=== PATIENT | male | born 1975 | race Caucasian/White ===

== ENCOUNTER 2017-01-11 19:38 | Emergency (ER) | payer OTHER ==
[~2017-01-11] VITALS: Ht 167.6 cm; Wt 77.1 kg
[~2017-01-11 19:38] MED LIST: ALBUTEROL17 G2 IH; ALBUTEROL17 GM INH; AMOXICILLIN500 M1 PO; BACTROBAN22 GM NS; BACTROBAN22 GM TP; CIPRO PO; COSOPT1 UNI1 OD; CYANOCOBALAMIN; DICLOFENAC PO; DOXYCYCLINE MO100 MG PO; FOLIC ACID1 MG PO; IBUPROFEN PO; IBUPROFEN600 MG PO; IBUPROFEN800 MG PO; ILOTYCIN1 GM OS; KLONOPIN1 MG PO; LISINOPRIL-HCTZ1 T17 PO; NAPROSYN500 MG PO; NO MEDICATIONS; PEN-VEE K PO; RONDEC-DM SYRU120 ML PO; ULTRAM PO; VIBRAMYCIN100 M1 PO; VITAMIN B; ZITHROMAX PO
[2017-01-11] MEDS ORDERED: ZESTORETIC 20-1 EAC1 PO (19:48)
== END 2017-01-11 21:40 | disposition home or self-care (01) ==
LOC: SED 19:38
DX: M77.12 Lateral epicondylitis, left elbow (principal); E78.5 Hyperlipidemia, unspecified; I10 Essential (primary) hypertension; F17.200 Nicotine dependence, unspecified, uncomplicated; Z88.8 Allergy status to other drugs, medicaments and biological substances; Z79.899 Other long term (current) drug therapy
CPT/HCPCS: 29260; 99283